=== PATIENT | female | born 1995 | race Native Hawaiian/Other Pacific Islander ===

== ENCOUNTER 2023-11-14 14:33 | Outpatient (REF) | payer OTHER, SELFPAY ==
[2023-11-14 16:11] LABS: MANUAL DIFF FLAG NO
[2023-11-14 16:21] LABS: Basophils Percent Auto 0.3 % (0-2); Eosinophils Absolute Auto 0.1 X10*3/uL (0.0-0.4); Eosinophils Percent Auto 1.6 % (0-4); Hematocrit 38.9 % (37.0-47.0); Hemoglobin 13.1 g/dl (12.0-16.0); Imm Gran Abs Auto 0.02 X10*3/uL (0.00-0.03); Imm Gran Pct Auto 0.3 % (0.0-0.4); Lymphocytes Absolute Auto 2.1 X10*3/uL (1.2-4.9); Lymphocytes Percent Auto 30.7 % (20-40); Mean Corpuscular HGB Conc 33.7 g/dl (31.0-35.0); Mean Corpuscular Hemoglobin 29.2 pg (27.0-33.0); Mean Corpuscular Volume 86.6 fL (80.0-98.0); Mean Platelet Volume 10.6 fL (9.4-12.3); Monocytes Absolute Auto 0.4 X10*3/uL (0.1-1.2); Monocytes Percent Auto 5.5 % (2-11); Neutrophils Absolute Auto 4.3 x10*3/uL (2.0-8.3); Neutrophils Percent Auto 61.6 % (45-73); Platelet Count 315 X10*3/uL (160-400); Red Blood Count 4.49 X10*6/uL (4.20-5.50); Red Cell Distribution Width 13.2 % (11.0-16.0); White Blood Count 6.9 X10*3/uL (4.8-10.8)
[2023-11-14 16:42] LABS: Alanine Aminotransferase 35 U/L (0-31); Albumin Level 4.3 g/dL (3.5-5.0); Alkaline Phosphatase 73 U/L (39-117); Anion Gap 11 (12-20); Aspartate Amino Transferase 24 U/L (5-31); Bilirubin Total 0.4 mg/dL (0.0-1.0); Blood Urea Nitrogen 12 mg/dL (9-16); Calcium 8.9 mg/dL (8.4-10.2); Carbon Dioxide 27 mmol/L (22-29); Chloride 103 mmol/L (96-108); Estimated Glomerular Filt Rate > 60; Glucose Random 88 mg/dL (60-115); Potassium 3.7 mmol/L (3.3-5.1); Sodium 137 mmol/L (135-145); Total Protein 7.1 g/dL (6.5-8.0)
[2023-11-14 16:59] LABS: TSH reflex Free T4 1.46 uIU/mL (0.32-4.0)
[2023-11-15 07:36] LABS: HIV AB/AG Nonreactive (Nonreactive); HIV Num 1 0.05 S/CO (0.00-0.99); ~HepC Num1 0.07 S/CO (0.00-0.79); ~Hepatitis C Antibody Nonreactive (Nonreactive)
[2023-11-16 14:48] LABS: RPR Rapid Plasma Reagin NON-REACTIVE (NON-REACTIVE)
== END 2023-11-14 14:34 | disposition home or self-care (01) ==
LOC: HO.HHCL 14:33
PROVIDERS: Visit Provider General Practice
DX: Z11.3 Encounter for screening for infections with a predominantly sexual mode of transmission (principal); R25.1 Tremor, unspecified
CPT/HCPCS: 36415; 80053; 84443; 85025; 86592; 86803; 87389

== ENCOUNTER 2024-04-09 16:18 | Outpatient (REF) | payer OTHER, SELFPAY ==
--- OUTSIDE RECORDS SUMMARY | 2024-04-09 16:40 | XMS_ITS | Encounter Summary ---
Author Organization [employer] Address [address] [place] [address] Care Team Providers Care Fashion Intern Name Role Phone Aimee Metcalf MD Primary Care Provider [phone] Encounter Details Date Type Department Care Team (Latest Contact Info) Description 04/09/2024 Travel Social History Tobacco Use Types Packs/Day Years Used Date Smoking Tobacco: Never Smokeless Tobacco: Never Alcohol Use Standard Drinks/Week Comments Never 0 (1 standard drink = 0.6 oz pur e alcohol) Depression Answer Date Recorded Patient Health Questionnaire-9 Score 0 11/14/2023 Patient Health Questionnaire-9 Score 0 11/14/2023 Last PHQ-9: Questionnaire Data Not on file 0 11/14/2023 Housing Stability Answer Date Recorded What is your housing situation today? I have emmanuel wong 10/25/[address] you li ve. Do you have problems with any of the following? None of the above 10/25/2023 Food Insecurity Answer Date Recorded Within the past 12 months, y ou worried that your food would run out before you got money to buy more: Never True 10/25/2023 Within the past 12 months,th e food you bought just didn't last and you didn't have enough money to get more: Never True Transportation Answer Date Recorded In the past 12 months, has l ack of transportation kept you from medical appts, meetings, work or from getting things needed for daily living? No 10/25/2023 Utilities Answer Date Recorded In the past 12 months, has t he electric, gas, oil or water company threatened to shut off services in your home? No 10/25/2023 Depression Answer Date Recorded Patient Health Questionnaire-2 Score 0 11/14/2023 Internet Access Answer Date Recorded Internet Access Q1 Yes 10/29/2023 Internet Access Q2 Not on file 10/29/2023 Comments No Sex and Gender Information Value Date Recorded Sex Assigned at Female 05/10/2023 10:48 AM EDT Legal Sex Female 10:46 AM EDT Gender Identity Female 05/10/2023 10:48 AM EDT Sexual Orientation Straight 11/14/2023 1: 34 PM EDT documented as of this encounter Plan of Treatment Not on file documented as of this encounter Visit Diagnoses Not on filedocumented in this encounter Additional Health Concerns Assessment Noted Time PHQ-9 Depression Total Score: 0 11/14/19 1:56 PM EDT documented as of this encounter Care Teams Fashion Intern Relationship Specialty Start Date End Date Aimee Metcalf MD [address] [place] [address] PCP - General Family Medicine 11/14/23 documented as of this encounter
--- OUTSIDE RECORDS SUMMARY | 2024-04-09 16:40 | XMS_ITS | Encounter Summary ---
Author Organization [employer] Address [address] [place] [address] Care Team Providers Care Principal Strategist Name Role Phone Aimee Metcalf MD Primary Care Provider [phone] Encounter Details Date Type Department Care Team (Late st Contact Info) Description 03/31/2024 Telephone [facility] MEDICINE [address] [place] [address] Carmen Vargas RN Social History Tobacco Use Types Packs/Day Years [...] is your housing situation today? I have emmanuelleonidas wong 10/25/[address] you [...] PM EDT documented as of this encounter Miscellaneous Notes * Telephone Encounter - Carmen Vargas RN - 03/31/2024 11:41 AM EST T/C to pt to R/S mychart self-scheduled pap to a more appropriate time. Pt agrees to new PAP visit time for 04/09/24 @ 9:15am with [facility] [facility] residents. documented in this encounter Plan of Treatment Not on file documented as of this encounter Visit Diagnoses Not on filedocumented in this encounter Additional Health Concerns Assessment Noted Time PHQ-9 Depression Total Score: 0 11/14/19 1:56 PM EDT documented as of this encounter Care Teams Principal Strategist Relationship Specialty Start Date End Date Aimee Metcalf MD [address] [place] [address] PCP - General Family Medicine 11/14/23 documented as of this encounter
--- OUTSIDE RECORDS SUMMARY | 2024-04-09 16:40 | XMS_ITS | Encounter Summary ---
Author Organization [employer] Address [address] [address] [facility] 7t [place] [address] Care Team Providers Care Ocean Clam Boat Captain Name Role Phone Aimee Metcalf MD Primary Care Provider [phone] Reason for Visit * Reason Comments Gynecologic Exam Encounter Details Date Type Department Care Team (Latest Contact Info) Description 04/09/2024 9:15 AM EST Procedure Visit [facility] MEDICINE [address] [place], [place] [phone] Maura Waller FNP [address] [place], [place] [phone] Routine cervical smear (Primary Dx); Intertrigo; IUD check up Social History Tobacco Use Types Packs/Day Years [...] PM EDT documented as of this encounter Last Filed Vital Signs Vital Sign Reading Time Taken Comments Blood Pressure 138/74 04/09/2024 9:25 AM EST Pulse 90 04/09/2024 9:25 AM EST Temperature 36.7 ??C (98.1 ??F) 04/09/2024 9:25 AM ES T Respiratory Rate 20 04/09/2024 9:25 AM EST Oxygen Saturation 98% 04/09/2024 9:25 AM EST Inhaled Oxygen Concentration - - Weight 97.9 kg (215 lb 12.8 oz) 04/09/2024 9:25 AM EST Height 157.5 cm (5' 2 ) 04/09/2024 9:25 AM EST Body Mass Index 39.47 04/09/2024 9:25 AM EST documented in this encounter Progress Notes * SHERMAN Escobar - 04/09/2024 9:15 AM EST Subjective Javier Alejo is a 28 y.o. female who presents for routine pap smear. Patient reported last pap was done outside [facility] in [facility] about 3 years ago and normal. Denies STI history, vaginal symptoms and urinary symptoms. LMP late last month, she does not keep a track of her period, they are light and irregular. IUD (Liletta) x 7 yrs. Plans to take it out next year to have another child. history: one child vaginal delivery Sexual active with same partner, denies pain/bleeding with sex. Denies safety concerns at home or with partner. No changes in breast exam. Denies family history of breast/ovarian/colon/uterine cancer. Review of Systems Constitutional: Negative for fever and unexpected weight change. HENT: Negative for sore throat. Respiratory: Negative for cough, chest tightness, shortness of breath and wheezing. Cardiovascular: Negative for chest pain, palpitations and leg swelling. Gastrointestinal: Negative for abdominal pain, nausea and vomiting. Genitourinary: Negative for dyspareunia, dysuria, frequency, genital sores, menstrual problem, pelvic pain, urgency, vaginal bleeding, vaginal discharge and vaginal pain. Neurological: Negative for dizziness. Psychiatric/Behavioral: Negative for sleep disturbance and suicidal ideas. Objective Patient Vitals for the past 24 hrs: BP Temp Temp src Pulse Resp SpO2 Height Weight 04/09/24 0925 138/74 98.1 ??F (36.7 ??C) Oral 90 20 98 % 5' 2 (1.575 m) 215 lb 12.8 oz (97.9 kg) Physical Exam Exam conducted with a wheel inspector present (Mary Alice Frances). Constitutional: Appearance: Normal appearance. Chest: Breasts: Right: Normal. No swelling, bleeding, inverted nipple, mass, nipple discharge, skin change or tenderness. Left: Normal. No swelling, bleeding, inverted nipple, mass, nipple discharge, skin change or tenderness. Comments: Bilateral Fibrocystic changes in the lower inner aspect Slight erythema under breasts bilaterally, possible intertrigo. Genitourinary: General: Normal vulva. Labia: Right: No rash, tenderness, lesion or injury. Left: No rash, tenderness, lesion or injury. Vagina: Normal. No signs of injury and foreign body. No vaginal discharge, erythema, tenderness, bleeding or lesions. Cervix: No cervical motion tenderness, discharge, friability, lesion, erythema, cervical bleeding or eversion. Uterus: Normal. Not enlarged and not tender. Adnexa: Right adnexa normal and left adnexa normal. Right: No mass, tenderness or fullness. Left: No mass, tenderness or fullness. Comments: IUD strings noted. Body of IUD not visible Lymphadenopathy: Upper Body: Right upper body: No supraclavicular or axillary adenopathy. Left upper body: No supraclavicular or axillary adenopathy. Neurological: Mental Status: She is alert. Psychiatric: Mood and Affect: Mood normal. Behavior: Behavior normal. Problem List Items Addressed This Visit Problem List Items Addressed This Visit Routine cervical smear - Primary Patient reports last pap smear about 3 yrs ago normal Sample sent to lab. Co test in 3 yrs if normal Relevant Orders Pap Smear Intertrigo Under bilateral breast moist with mild erythema. Patient complains sometimes itch. Nystatin powder prescribed BID PRN Relevant Medications nystatin (Mycostatin) 220080 UNIT/GM powder IUD check up Inserted immediately post x 7 yrs. Reviewed may continue for a total of 8 yrs from insertion. Planning to get at that time SURGERY AID Resident Attestation: Patient was seen and evaluated by Maura WHITAKER in collaboration with Mary Alice Frances CNM who has reviewed my assessment and plan. I, Mary Alice Frances CNM , have reviewed the resident's note and agree with the assessment & plan of care as documented above. documented in this encounter Plan of Treatment Scheduled Orders Name Type Priority Associated Diagnoses Orde r Schedule Pap Smear Pathology and Cytology Routine Routine cervical smear Ordered: 04/09/2024 documented as of this encounter Visit Diagnoses Diagnosis Routine cervical smear- Primary Screening for malignant neoplasm of the cervix Intertrigo Other specified erythematous condition IUD check up documented in this encounter Additional Health Concerns Assessment Noted Time PHQ-9 Depression Total Score: 0 11/14/19 24 1:56 PM EDT documented as of this encounter Care Teams Ocean Clam Boat Captain Relationship Specialty Start Date End Date Aimee Metcalf MD [address] [place] [address] PCP - General Family Medicine 11/14/23 documented as of this encounter
--- OUTSIDE RECORDS SUMMARY | 2024-04-09 16:40 | XMS_ITS | Encounter Summary ---
Author Organization [employer] Address [address] [place] [address] Care Team Providers Care Belt Buckle Maker Name Role Phone Aimee Metcalf MD Primary Care Provider [phone] Reason for Visit * Reason Onset Date Comments Chart Prep 04/07/2024 Encounter Details Date Type Department Care Team ([facility] st Contact Info) Description 04/07/2024 Telephone [facility] MEDICINE [address] [place] [address] Johana Veras MA Chart Prep Social History Tobacco Use Types Packs/Day Years [...] is your housing situation today? I have memanuelleonidas wong 10/25/[address] you [...] the past 12 months, has t he [employer], [employer], oil or water company threatened to shut [...] encounter Miscellaneous Notes * Telephone Encounter - Johana Veras MA - 04/07/2024 12:07 PM EST Chart Prep Labs: done Images: not applicable Vaccines due: Covid Due Referrals: Not Applicable Screenings: Not Applicable Overdue care gaps: None documented in this encounter Plan of Treatment Not on file documented as of this encounter Visit Diagnoses Not on filedocumented in this encounter Additional Health Concerns Assessment Noted Time PHQ-9 Depression Total Score: 0 11/14/19 24 1:56 PM EDT documented as of this encounter Care Teams Belt Buckle Maker Relationship Specialty Start Date End Date Aimee Metcalf MD [address] [place] [address] PCP - General Family Medicine 11/14/23 documented as of this encounter
--- OUTSIDE RECORDS SUMMARY | 2024-04-09 16:40 | XMS_ITS | Encounter Summary ---
Author Organization [employer] Address [address] [place] [address] Care Team Providers Care Wharf Worker Name Role Phone Aimee Metcalf MD Primary Care Provider [phone] Encounter Details Date Type Department Care Team (Latest Contact Info) Description 03/31/2024 Travel Social History Tobacco Use Types Packs/Day [...] documented as of this encounter Care Teams Wharf Worker Relationship Specialty Start Date End Date Aimee Metcalf MD [address] [place] [address] PCP - General Family Medicine 11/14/23 documented as of this encounter
--- OUTSIDE RECORDS SUMMARY | 2024-04-09 16:41 | XMS_ITS | Encounter Summary ---
Author Organization [employer] Address [address] [place] [address] Care Team Providers Care Hadoop Analyst Name Role Phone Aimee Metcalf MD Primary Care Provider Reason for Visit * Reason Onset Date Comments RECALL 03/11/2024 Encounter Details Date Type Department Care Team ([facility] st Contact Info) Description 03/11/2024 Telephone [facility] MEDICINE [address] [place], [place] [phone] Chio Leon MA RECALL Social History Tobacco Use Types Packs/Day Years [...] t he electric, gas, oil or water [employer] threatened to shut off services in your [...] encounter Miscellaneous Notes * Telephone Encounter - Chio Leon MA - 03/11/2024 3:02 PM EST T/C placed to pt to schedule pap . Lvm for pt to cb & schedule appt. Sent RCL documented in this encounter Plan of Treatment Not on file documented as of this encounter Visit Diagnoses Not on filedocumented in this encounter Additional Health Concerns Assessment Noted Time PHQ-9 Depression Total Score: 0 11/14/19 24 1:56 PM EDT documented as of this encounter Care Teams Hadoop Analyst Relationship Specialty Start Date End Date Aimee Metcalf MD [address] [place] [address] PCP - General Family Medicine 11/14/23 documented as of this encounter
--- OUTSIDE RECORDS SUMMARY | 2024-04-09 16:41 | XMS_ITS | Clinical Summary ---
Author Organization [facility] Address [address] [place] [address] Care Team Providers Care Cinder Worker Name Role Phone Syed Khalil PA-C Primary Care Provider Source Comments PLEASE NOTE, if this patient is a minor, it may be UNLAWFUL to discuss sensitive information that is contained in these records (such as FAMILY PLANNING, MENTAL HEALTH or SUBSTANCE ABUSE) with the minor patient's parent or other person without the patient's specific authorization.[facility] Allergies Active Allergy Reactions Criticality Noted Date Comments Penicillins Hives 08/23/2021 Medications No known medications Active Problems Problem Noted Date Diagnosed Date Obesity (BMI 30-39.9) 11/30/2021 Immunizations Name Administration Dates Next Due PFIZER COVID VACCINE, PURPLE CAP, 12+ 10/09/2020 ,09/18/2020 Family History Medical History Relation Name Comments Diabetes Father Hypertension Father Cancer Maternal Grandmother Diabetes Mother Hypertension Mother Relation Name Status Comments Father Alive Maternal Grandmother Alive Mother Alive Son Alive Social History Tobacco Use Types Packs/Day Years Used Date Smoking Tobacco: Never Smokeless Tobacco: Never Tobacco Cessation:Counseling Given: Yes Alcohol Use Standard Drinks/Week Comments Yes 0 (1 standard drink = 0.6 oz pur e alcohol) rarely Social Connections Answer Date Recorded Connectedness 0 08/24/2021 Financial Resource Strain Answer Date R ecorded Financial Resource Strain 0 2021 Stress Answer Date Recorded Stress 0 08/24/2021 Physical Activity Answer Date Recorded Physical Activity 0 08/23/2021 Food Insecurity Answer Date Recorded Food 0 08/24/2021 Transportation Needs Answer Date Record ed Transportation 0 08/24/2021 Housing Stability Answer Date Recorded Housing 0 08/24/2021 Safety and Environment Answer Date Andrew rded Safety 0 08/24/2021 Utilities Answer Date Recorded Utilities 0 08/24/2021 Employment Answer Date Recorded Employment 0 08/23/2021 Comments No Sex and Gender Information Value Date Recorded Sex Assigned at Female 08/24/2021 5:46 AM PDT Legal Sex Female 6:27 AM PST Gender Identity Female 08/24/2021 5:46 AM PDT Sexual Orientation Straight 08/24/2021 5: 46 AM PDT Last Filed Vital Signs Vital Sign Reading Time Taken Comments Blood Pressure 128/70 12/07/2021 2:51 PM EDT Pulse 75 12/07/2021 2:51 PM EDT Temperature 36.9 ??C (98.4 ??F) 12/07/2021 2:51 PM ED T Respiratory Rate 16 12/07/2021 2:51 PM EDT Oxygen Saturation 98% 12/07/2021 2:51 PM EDT Inhaled Oxygen Concentration - - Weight 88.9 kg (196 lb) 12/07/2021 2:51 PM EDT Height 157.5 cm (5' 2 ) 12/07/2021 2:51 PM EDT Body Mass Index 35.85 12/07/2021 2:51 PM EDT Plan of Treatment Health Maintenance Due Date Last Done Comments HPV Screening 1996 Tobacco Screening 1996 Imm-Hepatitis B (1 of 3 - 19 + 3-dose series) 11/27/2015 Relationship Safety Screening/Counseling 08/23/2022 08/23/2021 Annual Preventive Care Visit 12/07/2022 12/07/2021 [id number] ( season) 10/28/202310/09/ 021, 09/18/2020 Imm-Influenza (#1) 2023 Alcohol and Drug Screen 02/27/2024 08/23/2021 Depression Annual Screen 02/27/2024 08/24/2021 Pap Smear 04/01/2024 04/01/2021, 04/01/2021 Hypertension Screening (#1) 12/06/2024 Cervical Cancer Screening 04/01/2026 Pap + HPV 04/01/2026 04/01/2021 Imm-DTaP/Tdap/Td (2 - Td or Tdap) 06/30/2026 017 HIV Screening Completed 12/07/2021 Hepatitis C Screening Completed 12/07/2021 Cervical Ablation/Cold-Knife Conization Discontinued Cervical Cryotherapy Discontinued Colposcopy Discontinued Endometrial Biopsy Discontinued Excision/Leep Discontinued HPV Genotyping Discontinued Vaginal Pap Discontinued Vulvoscopy Discontinued Procedures Procedure Name Priority Date/Time Associated Diagnosis Comments HIV 1/2 AG & AB W/RFLX (4TH GEN) Routine 12/07/2021 3:05 PM EDT Screening for viral disease HEPATITIS C AB W/RFLX HCV RNA, QT, RT PCR Routine 12/07/2021 3:05 PM EDT Screening for viral disease PAP W/ HPV 04/01/2021 3:00 AM EST from Last 3 Months or Most Recently Relevant to Health Maintenance Results * HEPATITIS C AB W/RFLX HCV RNA, QT, RT PCR (12/07/2021 3:05 PM EDT) HEPATITIS C ANTIBODY NON-REACT KARLA NON-REACT KARLA Net 263 SIGNAL TO CUT-OFF 0.03 <1.00 Net 263 Comment: HCV antibody was non-reactive. There is no laboratory evidence of HCV infection. In most cases, no further action is required. However, if recent HCV exposure is suspected, a test for HCV RNA (test code 17106) is suggested. For additional information please refer to http://education.Zoodig/faq/HLY89m8 (This link is being provided for informational/ educational purposes only.) Blood Blood / Unknown 12/07/2021 3 :05 PM EDT 12/07/2021 3:05 PM EDT Narrative [employer] - 12/08/2021 3:07 AM EDT FASTING:NO us Syed Khalil PA-C LAB - BLOOD DRAW Final Resul t [employer] [address] [address], [address] [address] * HIV 1/2 AG & AB W/RFLX (4TH GEN) (12/07/2021 3:05 PM EDT) HIV AG/AB, 4TH GEN NON-REAC TIVE NON-REAC TIVE Net 263 Comment: HIV-1 antigen and HIV-1/HIV-2 antibodies were not detected. There is no laboratory evidence of HIV infection. PLEASE NOTE: This information has been disclosed to you from records whose confidentiality may be protected by state law. ??If your state requires such protection, then the state law prohibits you from making any further disclosure of the information without the specific written consent of the person to whom it pertains, or as otherwise permitted by law. A general authorization for the release of medical or other information is NOT sufficient for this purpose. ?? For additional information please refer to http://education.Zoodig/faq/HTS676 (This link is being provided for informational/ educational purposes only.) The performance of this assay has not been clinically validated in patients less than 2 years old. Blood Blood / Unknown 12/07/2021 3 :05 PM EDT 12/07/2021 3:05 PM EDT Narrative [employer] - 12/08/2021 3:07 AM EDT FASTING:NO us Syed Khalil PA-C LAB - BLOOD DRAW Final Resul t [employer] [address] [place] [id number], [employer] [address] [address] * PAP W/ HPV (04/01/2021 3:00 AM EST) 04/01/2021 3:00 AM EST us Syed Khalil PA-C LAB - NO BLOOD DRAW Final Re sult from Last 3 Months or Most Recently Relevant to Health Maintenance Insurance [employer] Member Subscriber Plan / Payer (Ef fective 2023-Present) Name:Javier Alejo Relation to Subscriber:Self Name:Javier Alejo Payer ID:[id number] Type:Indemnity Address: [address] [address] Care Teams Cinder Worker Relationship Specialty Start Date End Date Syed Khalil PA-C [address] [place] [address] PCP - General 05/31/21
--- OUTSIDE RECORDS SUMMARY | 2024-04-09 16:41 | XMS_ITS | Clinical Summary ---
Author Organization [employer] Address [address] [place] [address] 7t [place] [address] Care Team Providers Care Timber Appraiser Name Role Phone Aimee Metcalf MD Primary Care Provider [phone] Allergies Active Allergy Reactions Criticality Noted Date Comments Penicillins Hives 08/23/2021 Medications propranolol (Inderal) 10 MG tabletIndication s:Tremor Take 1 tablet (10 mg) by mouth if needed each day (tremor). 90 tablet 3 11/16/2023 Active nystatin (Mycostatin) 512498 UNIT/GM powderIndication s:Intertrigo Apply twice daily under the breast PRN 30 g 1 04/09/2024 Active Active Problems Problem Noted Date Diagnosed Date Intertrigo 04/09/2024 Normal female breast exam 04/09/2024 IUD check up 04/09/2024 Routine cervical smear 04/08/2024 Class 1 obesity 11/09/2023 Carpal tunnel syndrome during 11/09/19 24 Encounters Date Type Department Care Team Description 04/09/2024 9:15 AM EST Procedure Visit [facility] [address] [place] [phone] Maura Waller FNP Routine cervical smear (Primary Dx); Intertrigo; IUD check up 04/09/2024 Travel 04/07/2024 Telephone [facility] [address] [place] [address] Johana Veras MA Chart Prep 03/31/2024 Telephone [facility] [address] [place] [address] Carmen Vargas RN 03/31/2024 Travel 03/11/[address] [place] [address] Chio Leon AR RECALL from Last 3 Months Immunizations Name Administration Dates Next Due Influenza, seasonal, injectable, preservative fr ee 11/14/2023 Pfizer Covid-19 Vaccine 12+ 10/09/2020, Tdap 06/30/2016 Family History Medical History Relation Name Comments Diabetes type II Father Hyperlipidemia Mother Hypertension Mother Relation Name Status Comments Father Mother Social History Tobacco Use Types Packs/Day Years Used Date Smoking Tobacco: Never Smokeless Tobacco: Never Tobacco Cessation:Counseling Given: Not Answered Alcohol Use Standard Drinks/Week Comments Never 0 [...] Orientation Straight 11/14/2023 1: 34 PM EDT Last Filed Vital Signs Vital Sign Reading [...] Mass Index 39.47 04/09/2024 9:25 AM EST Plan of Treatment Health Maintenance Due Date Last Done Comments Pap Smear 2017 COVID-19 Vaccine ( season) 2023 10/09/2020, 09/18/2020 Alcohol/Substance Use Screening 11/13/2024 11/14/2023 Depression Screening 11/13/2024 11/14/2023, 11/14/19 SDOH Screening 11/13/2024 11/14/2023 Family Planning (PISQ) 04/09/2025 04/09/2024 Tobacco Screening 04/09/2025 04/09/2024 DTaP/Tdap/Td Vaccines (7 - Td or Tdap) 06/30/2026 06/30/2016, 07/13/2008, 05/14/1998, Additional history exists Zoster Vaccines (1 of 2) 2046 RSV Patients and Patients Aged 60 years or older (1 - 1-dose 75+ series) 11/27/2071 Hepatitis B Vaccines Completed 06/16/1997, 04/08/1997, 02/02/1997 HIB Vaccines Completed 05/14/1998, 05/28, 04/08/1997, Additional history exists IPV Vaccines Completed 11/28/2000, 05/28, 04/08/1997, Additional history exists HPV Vaccines Completed 04/21/2009, 11/26, 07/13/2008 Meningococcal Vaccine Completed 03/28/2013, 009 HIV Screening Completed 11/14/2023, 12/07/2021 Hepatitis C Screening Completed 11/14/2023 Influenza Vaccine Completed 11/14/2023, 03/28/2013 Hepatitis A Vaccines Aged Out No long er eligible based on patient's age to complete this topic Pneumococcal Vaccine: Pediatrics (0 to 5 Years) and At-Risk Patients (6 to 49) Years) Aged Out No longer eligible based on patient's age to complete this topic RSV under 20 months Aged Out No longe r eligible based on patient's age to complete this topic Rotavirus Vaccines Aged Out No longer eligible based on patient's age to complete this topic Procedures Procedure Name Priority Date/Time Associated Diagnosis Comments HEPATITIS C AB W/REFL TO HCV RNA, QN, PCR Routine 11/14/2023 2:37 PM EDT Routine screening for STI (sexually transmitted infection) HIV 1/2 ANTIGEN/ANTIBODY, FOURTH GENERATION W/RFL Routine 11/14/2023 2:37 PM EDT Routine screening for STI (sexually transmitted infection) from Last 3 Months or Most Recently Relevant to Health Maintenance Results * Hepatitis C Antibody with Reflex to HCV, RNA, Quantitative, Real-Time PCR (11/14/2023 2:37 PM EDT) Hepatitis C Antibody Nonreactive Nonreactive [facility] Comment:Antibodies to HCV no t detected; does not exclude early acuteHCV infection. Blood Venous blood specimen / Unknown 11/14/2023 2:37 PM EDT 11/14/2023 4:08 PM EDT us Aimee Metcalf MD LAB BLOOD ORDERABLES Final Res ult [facility] [address] [place] [phone] * HIV-1/2 Antigen and Antibodies, Fourth Generation, with Reflexes (11/14/2023 2:37 PM EDT) HIV AB/AG Nonreactive Nonreactive [facility] Comment:HIV-1 p24 Ag and/or HIV-1/HIV-2 Ab not detected.A test result that is nonreactive does not exclude thepossibility of exposure to or infection with HIV-1 and/orHIV-2. Nonreactive results in this assay for individualswith prior exposure to HIV-1 and/or HIV-2 may be due toantigen and antibody levels that are below the limit ofdetection of this assay.The [employer] HIV Ag/Ab Combo assay result andsupplemental assay results should be interpreted inconjunction with the patient's clinical presentation,history and other laboratory results. If the results areinconsistent with clinical evidence, additional testing issuggested to confirm the result. Blood Venous blood specimen / Unknown 11/14/2023 2:37 PM EDT 11/14/2023 4:08 PM EDT us Aimee Metcalf MD LAB BLOOD ORDERABLES Final Res ult [facility] [address] [place] [phone] from Last 3 Months or Most Recently Relevant to Health Maintenance Insurance [facility] Care Teams Timber Appraiser Relationship Specialty Start Date End Date Aimee Metcalf MD [address] [place] [phone] PCP - General Family Medicine 11/14/23
== END 2024-04-09 16:19 | disposition home or self-care (01) ==
LOC: HO.HHCLNP 16:18
PROVIDERS: Visit Provider Nurse Practitioner Family
DX: Z12.4 Encounter for screening for malignant neoplasm of cervix (principal)
CPT/HCPCS: 88175

== ENCOUNTER 2024-12-26 11:10 | Outpatient (REF) | payer OTHER, SELFPAY ==
--- OUTSIDE RECORDS SUMMARY | 2024-12-26 10:30 | XMS_ITS | Encounter Summary ---
Author Organization [employer] Address [address] [facility] 7t [place] [address] Care Team Providers Care Psychologist Clinical Name Role Phone Aimee Metcalf MD Primary Care Provider [phone] Reason for Visit * Reason Comments Annual Exam Encounter Details Date Type Department Care Team ([facility] Contact Info) Description 12/26/2024 10:30 AM EDT Office Visit [facility] [address] [place], [place] [phone] Aimee Metcalf MD [address] [place], [place] [phone] Normal female breast exam (Primary Dx); Class 1 obesity Social History Tobacco Use Types Packs/Day Years Used Date Smoking Tobacco: Never Smokeless Tobacco: Never Alcohol Use Standard Drinks/Week Comments Never 0 (1 standard drink = 0.6 oz pur e alcohol) Depression Answer Date Recorded Patient Health Questionnaire-9 Score 3 12/26/2024 Patient Health Questionnaire-9 Score 3 12/26/2024 Last PHQ-9: Questionnaire Data Not on file 1 Housing Stability Answer Date Recorded What is your housing situation today? I have emmanuel wong 12/26/[address] you li ve. Do you have problems with any of the following? None of the above 12/26/2024 Food Insecurity Answer Date Recorded Within the past 12 months, y ou worried that your food would run out before you got money to buy more: Never True 12/26/2024 Within the past 12 months,th e food [...] shut off services in your home? No 12/26/2024 Depression Answer Date Recorded Patient Health Questionnaire-2 Score 0 12/26/2024 Internet Access Answer Date Recorded Internet Access Q1 No 12/26/2024 Internet Access Q2 Not on file 12/26/2024 Comments No Sex and Gender Information Value Date Recorded Sex Assigned at Female 05/10/2023 10:48 AM EDT Legal Sex Female 10:46 AM EDT Gender Identity Female 05/10/2023 10:48 AM EDT Sexual Orientation Straight 11/14/2023 1: 34 PM EDT documented as of this encounter Last Filed Vital Signs Vital Sign Reading Time Taken Comments Blood Pressure 130/80 12/26/2024 10:40 AM EDT Pulse 74 12/26/2024 10:40 AM EDT Temperature 36.8 C (98.3 F) 12/26/2024 10:40 AM EDT Respiratory Rate 20 12/26/2024 10:40 AM EDT Oxygen Saturation - - Inhaled Oxygen Concentration - - Weight 102 kg (224 lb 9.6 oz) 12/26/2024 10:40 A M EDT Height 162.6 cm (5' 4 ) 12/26/2024 10:40 AM EDT Body Mass Index 38.55 12/26/2024 10:40 AM EDT documented in this encounter Functional Status * Over the past 2 weeks, how often have you been bothered by any of the following problems? Question Answer Date of Assessment Author Patient Health Questionnaire -2 Score 0 12/26/2024 10:42 AM EDT Kenyon Lyons MA * Little interest or pleasure in doing things Answer Date of Assessment Author Not at all 12/26/2024 10:42 AM EDT Kenyon Lyons MA * Feeling down, depressed, or hopeless Answer Date of Assessment Author Not at all 12/26/2024 10:42 AM EDT Kenyon Lyons MA * Trouble falling or staying asleep, or sleeping too much Answer Date of Assessment Author Several days 12/26/2024 10:42 AM Kenyon William MA * Feeling tired or having little energy Answer Date of Assessment Author Several days 12/26/2024 10:42 AM Kenyon William MA * Poor appetite or overeating Answer Date of Assessment Author Several days 12/26/2024 10:42 AM Kenyon William MA * Feeling bad about yourself - or that you are a failure or have let yourself or your family down Answer Date of Assessment Author Not at all 12/26/2024 10:42 AM Kenyon William MA * Trouble concentrating on things, such as reading the newspaper or watching television Answer Date of Assessment Author Not at all 12/26/2024 10:42 AM Kenyon William MA * Moving or speaking so slowly that other people could have noticed? Or the opposite - being so fidgety or restless that you have been moving around a lot more than usual. Answer Date of Assessment Author Not at all 12/26/2024 10:42 AM Kenyon William MA * Thoughts that you would be better off or hurting yourself in some way Answer Date of Assessment Author Not at all 12/26/2024 10:42 AM Kenyon William MA * Patient Health Questionnaire-9 Score Answer Date of Assessment Author 3 12/26/2024 10:42 AM Kenyon William MA * How difficult have these problems made it for you to do your work, take care of things at home, or get along with other people? Answer Date of Assessment Author Not difficult at all 12/26/2024 10:42 AM Kenyon Pelayo MA * Over the last 2 weeks, how often have you been bothered by any of the following problems? Question Answer Date of Assessment Author Feeling nervous, anxious, or on edge 1 12/26/2024 10:41 AM Kenyon William MA Not being able to stop or co ntrol worrying 1 12/26/2024 10:41 AM Kenyon William MA Worrying too much about diff erent things 1 12/26/2024 10:41 AM EDT Kenyon Lyons MA Trouble relaxing 1 12/26/2024 10:41 AM EDT Kenyon Lyons MA Being so restless that it is hard to sit still 0 12/26/2024 10:41 AM EDT Kenyon Lyons MA Becoming easily annoyed or irritable 2 12/26/2024 10:41 AM EDT Kenyon Lyons MA Feeling afraid as if somethi ng awful might happen 0 12/26/2024 10:41 AM EDT Kenyon Lyons MA KARMEN-7 Total Score 6 12/26/2024 10:41 AM EDT Kenyon Lyons MA documented as of this encounter Plan of Treatment Scheduled Orders Name Type Priority Associated Diagnoses Orde r Schedule Lipid Panel, Standard Lab Routine Class 1 obesity Expected: 12/26/2024 (Approximate), Expires: 12/26/2025 documented as of this encounter Visit Diagnoses Diagnosis Normal female breast exam- Primary Class 1 obesity documented in this encounter Additional Health Concerns Assessment Noted Time PHQ-9 Depression Total Score: 3 12/27/19 25 10:42 AM EDT documented as of this encounter Care Teams Psychologist Clinical Relationship Specialty Start Date End Date Aimee Metcalf MD [address] [place] [address] PCP - General Family Medicine 11/14/23 documented as of this encounter
--- OUTSIDE RECORDS SUMMARY | 2024-12-26 12:45 | XMS_ITS | Encounter Summary ---
Author Organization [employer] Address [address] [facility] 7t [place] [address] Care Team Providers Care Community Outreach Coordinator Name Role Phone Aimee Metcalf MD Primary Care Provider [phone] Reason for Visit * Reason Onset Date Comments chart prep 12/25/2024 Encounter Details Date Type Department Care Team ([facility] st Contact Info) Description 12/25/2024 Telephone [facility] [address] [place], [place] [phone] Aimee Metcalf MD [address] [place], [place] [phone] chart prep Social History Tobacco Use Types Packs/Day Years [...] encounter Miscellaneous Notes * Telephone Encounter - Kenyon Lyons MA - 12/25/2024 10:09 AM EDT Chart Prep Labs: not applicable Images: not applicable Referrals: not applicable Vaccines due: Covid and Flu Screenings: not applicable Overdue care gaps: SBIRT, SDOH, PHQ-9, and KARMEN-7 documented in this encounter Plan of Treatment Not on file documented as of this encounter Visit Diagnoses Not on filedocumented in this encounter Additional Health Concerns Assessment Noted Time PHQ-9 Depression Total Score: 0 11/14/19 24 1:56 PM EDT documented as of this encounter Care Teams Community Outreach Coordinator Relationship Specialty Start Date End Date Aimee Metcalf MD [address] [place] [address] PCP - General Family Medicine 11/14/23 documented as of this encounter
--- OUTSIDE RECORDS SUMMARY | 2024-12-26 12:45 | XMS_ITS | Clinical Summary ---
Author Organization [employer] Address [address] [facility] 7t [place] [address] Care Team Providers Care Research And Development Manager Name Role Phone Aimee Metcalf MD Primary Care Provider [phone] Allergies Active Allergy Reactions Criticality Noted Date Comments Penicillins Hives 08/23/2021 Medications propranolol (Inderal) 10 MG tabletIndication s:Tremor Take 1 tablet (10 mg) by mouth if needed each day (tremor). 90 tablet 3 11/16/2023 Active 28-0.8 MG tabletIndication s:Encounter for IUD removal Take 1 tablet by mouth Once per day. 90 tablet 3 07/01/2024 Active Active Problems Problem Noted Date Diagnosed Date Encounter for IUD removal 07/01/2024 Assessment & Plan (07/01/2024 9:44 AM EDT): Discussed preconception counseling No EtoH, no smoking tobacco or marijuana vitamin daily, eat varied diet, rich in vegetables, lean protein, and whole grains With positive test, to inform us and decide where she would like to be seen for care Intertrigo 04/09/2024 Normal female breast exam 04/09/2024 Routine cervical smear 04/08/2024 Class 1 obesity 11/09/2023 Carpal tunnel syndrome during 11/09/19 24 Resolved Problems Problem Noted Date Diagnosed Date Resolved Date IUD check up 04/09/2024 07/01/2024 Encounters Date Type Department Care Team Description 12/26/2024 10:30 AM EDT Office Visit [facility] [address] [place] [address] Aimee Metcalf MD Normal female breast exam (Primary Dx); Class 1 obesity 12/26/2024 Travel 12/25/2024 Telephone [facility] [address] [place] [phone] Aimee Metcalf MD chart prep 12/19/2024 Travel 12/18/2024 Patient Outreach [facility] [address] [place] [address] Aimee Metcalf MD Pre-visit Planning (Pre-visit planning - LVM ) from Last 3 Months Immunizations Immunization Administration Dates Next Due DTP 06/16/1997,04/08/1997,02/02/1997 DTaP 05/14/1998 HPV, Quadrivalent 04/21/2009,12/08/2008,07/14/19 09 Hep B, Adolescent or Pediatric 06/16/1997,1997,02/02/1997 HiB, unspecified 05/14/1998, 8,04/08/1997,02/02 IPV 11/28/2000 Influenza, Unspecified 03/28/2013 Influenza, seasonal, injecta ble, preservative free 11/14/2023 MMR 11/28/2000,05/14/1998 Meningococcal MCV4P [id number]-135 03/28/2013,07/14/19 09 OPV, Trivalent 06/16/1997,04/08/1997,02/02/1997 Pfizer Covid-19 Vaccine 12+ 10/09/2020, Tdap 06/30/2016,07/13/2008 Varicella 08/10/2008,05/14/1998 Family History Medical History Relation Name Comments [...] 20 12/26/2024 10:40 AM EDT Oxygen Saturation 99% 07/01/2024 9:12 AM EDT Inhaled Oxygen Concentration - - Weight 102 kg (224 lb 9.6 oz) 12/26/2024 10:40 A M EDT Height 162.6 cm (5' 4 ) 12/26/2024 10:40 AM EDT Body Mass Index 38.55 12/26/2024 10:40 AM EDT Plan of Treatment Health Maintenance Due Date Last Done Comments Lipid Panel 1996 COVID-19 Vaccine ( season) 2024 10/09/2020, 09/18/2020 Influenza Vaccine (#1) 2024 11/14/2023, 2013 SDOH Screening 11/13/2024 11/14/2023 Disability Screening 04/09/2025 04/09/2024 Family Planning (PISQ) 04/09/2025 04/09/2024 Alcohol/Substance Use Screening 12/26/2025 12/26/2024 Depression Screening 12/26/2025 12/26/2024, 12/27/19 25 Tobacco Screening 12/26/2025 12/26/2024 DTaP/Tdap/Td Vaccines (7 - Td or Tdap) 06/30/2026 06/30/2016, 07/13/2008, 05/14/1998, Additional history exists Pap Smear 04/09/2027 04/09/2024 Zoster Vaccines (1 of 2) 2046 RSV [...] 11/14/2023, 12/07/2021 Hepatitis C Screening Completed 11/14/2023 Hepatitis A Vaccines Aged Out No long er eligible based on patient's age to complete this topic Meningococcal B Vaccine Aged Out No l onger eligible based on patient's age to complete this topic Pneumococcal Vaccine: Pediatrics (0 to 5 Years) and At-Risk Patients (6 to 49) Years Aged Out No longer eligible based on patient's age to complete this topic RSV under 20 months Aged Out No longe r eligible based on patient's age to complete this topic Rotavirus Vaccines Aged Out No longer eligible based on patient's age to complete this topic Procedures Procedure Name Priority Date/Time Associated Diagnosis Comments PAP SMEAR Routine 04/09/2024 10:00 AM EST Routine cervical smear HEPATITIS C AB W/REFL TO HCV RNA, QN, PCR Routine 11/14/2023 2:37 PM EDT Routine screening for STI (sexually transmitted infection) HIV 1/2 ANTIGEN/ANTIBODY, FOURTH GENERATION W/RFL Routine 11/14/2023 2:37 PM EDT Routine screening for STI (sexually transmitted infection) from Last 3 Months or Most Recently Relevant to Health Maintenance Results * Pap Smear (04/09/2024 10:00 AM EST) Swab Cervix uteri structure / Unknown 04/09/2024 10:00 AM EST 04/10/2024 6:10 AM EST [facility] - 04/17/2024 9:41 PM EST ----- ------- Name: Javier Alejo Age/Sex: 28/F : 1995 Unit#: [id number] Attend Dr: Maura Waller Re04/09/24 Status: SIRENA REF Location: HO.HHCLNP Disch: ----- ------- SPEC : [id number] RECD: 04/10/24-609 STATUS: LAKISHA PIKE NUM: [id number] JC: 04/09/24-[address]: Maura Waller ENTERED: 04/10/2442 SP TYPE: Pap Smr OTHR : ORDERED: Pap Smear, PAP path review Interpretation ABNORMAL PAP TEST. Satisfactory for evaluation, with mildly dysplastic squamous cells / HPV cytopathic change (PEPPER 1; low grade squamous intraepithelial lesion). No endocervical cells seen. Moderate inflammation. HPV High Risk: Positive HPV Genotyping 16: Negative HPV Genotyping 18: Negative Clinical Information LMP: 02/28/24 Previous PAP test: Unknown Other surgery: Other history: IUD Material Received ThinPrep-Cervical ----- ------- Signed (signature on file) Destiney Elizalde MD 04/17/24 2141 ----- ------- END OF REPORT us Maura Waller [facility] CYTOLOGY ORDERABLES Final Result [facility] [address] [place] [phone] * Hepatitis C Antibody with Reflex to HCV, RNA, Quantitative, Real-Time PCR (11/14/2023 2:37 PM EDT) Hepatitis C Antibody Nonreactive Nonreactive [facility] Comment:Antibodies to HCV no t detected; does not exclude early acuteHCV infection. Blood Venous blood specimen / Unknown 11/14/2023 2:37 PM EDT 11/14/2023 4:08 PM EDT Aimee Metcalf MD LAB BLOOD ORDERABLES Final Res ult Performing Organization Address [facility]/ZIP Co de Phone Number [facility] [address] [place] [phone] * HIV-1/2 Antigen and Antibodies, Fourth Generation, with Reflexes (11/14/2023 2:37 PM EDT) [facility] HIV AB/AG Nonreactive Nonreactive [facility] Comment:HIV-1 p24 Ag and/or HIV-1/HIV-2 Ab not detected.A test result that is nonreactive does not exclude thepossibility of exposure to or infection with HIV-1 and/orHIV-2. Nonreactive results in this assay for individualswith prior exposure to HIV-1 and/or HIV-2 may be due toantigen and antibody levels that are below the limit ofdetection of this assay.The [employer] HIV Ag/Ab Combo assay result andsupplemental assay results should be interpreted inconjunction with the patient's clinical presentation,history and other laboratory results. If the results areinconsistent with clinical evidence, additional testing issuggested to confirm the result. Blood Venous blood specimen / Unknown 11/14/2023 2:37 PM EDT 11/14/2023 4:08 PM EDT Aimee Metcalf MD LAB BLOOD ORDERABLES Final Res ult Performing Organization Address City/[facility]/ZIP Co de Phone Number [facility] [address] [place] [phone] from Last 3 Months or Most Recently Relevant to Health Maintenance Insurance [facility] Care Teams Research And Development Manager Relationship Specialty Start Date End Date Aimee Metcalf MD [address] [place] [phone] PCP - General Family Medicine 11/14/23
--- OUTSIDE RECORDS SUMMARY | 2024-12-26 12:45 | XMS_ITS | Encounter Summary ---
Author Organization [employer] Address [address] [facility] [address] [address] 7[address] [place] [address] Care Team Providers Care Rfid Developer Name Role Phone Aimee Metcalf MD Primary Care Provider [phone] Encounter Details Date Type Department Care Team (Latest Contact Info) Description 12/26/2024 Travel Social History Tobacco Use Types Packs/Day [...] PM EDT documented as of this encounter Functional Status * Over the past 2 weeks, how often have you been bothered by any of the following problems? Question Answer Date of Assessment Author Patient Health Questionnaire -2 Score 0 12/26/2024 10:42 AM EDT Kenyon Lyons MA * Little interest or pleasure in doing things Answer Date of Assessment Author Not at all 12/26/2024 10:42 AM MUNIRT Kenyon Lyons MA * Feeling down, depressed, or hopeless Answer Date of Assessment Author Not at all 12/26/2024 10:42 AM Kenyon William MA * Trouble falling or staying asleep, [...] Author Not at all 12/26/2024 10:42 AM EDKenyon Glover MA * Thoughts that you would be [...] Not difficult at all 12/26/2024 10:42 AM EDT Kenyon Penny MA * Over the last 2 weeks, [...] diff erent things 1 12/26/2024 10:41 AM Kenyon William MA Trouble relaxing 1 12/26/2024 10:41 AM Kenyon William MA Being so restless that it is hard to sit still 0 12/26/2024 10:41 AM Kenyon William MA Becoming easily annoyed or irritable 2 12/26/2024 10:41 AM Kenyon William MA Feeling afraid as if somethi ng awful might happen 0 12/26/2024 10:41 AM Kenyon William MA KARMEN-7 Total Score 6 12/26/2024 10:41 AM Kenyon William MA documented as of this encounter Plan of Treatment Not on file documented as of this encounter Visit Diagnoses Not on filedocumented in this encounter Additional Health Concerns Assessment Noted Time PHQ-9 Depression Total Score: 3 12/27/19 25 10:42 AM EDT documented as of this encounter Care Teams Rfid Developer Relationship Specialty Start Date End Date Aimee Metcalf MD [address] [place] [phone] PCP - General Family Medicine 11/14/23 documented as of this encounter
--- OUTSIDE RECORDS SUMMARY | 2024-12-26 12:45 | XMS_ITS | Clinical Summary ---
Author Organization [facility] Address [address] [place] [address] Care Team Providers Care Insurance Account Representative Name Role Phone Syed Khalil PA-C Primary [...] Diagnosed Date Obesity (BMI 30-39.9) 11/30/2021 Immunizations Immunization Administration Dates Next Due PFIZER COVID VACCINE, [...] 75 12/07/2021 2:51 PM EDT Temperature 36.9 C (98.4 F) 12/07/2021 2:51 PM EDT Respiratory Rate 16 12/07/2021 2:51 PM EDT Oxygen Saturation 98% 12/07/2021 2:51 PM EDT Inhaled Oxygen Concentration - - Weight 88.9 kg (196 lb) 12/07/2021 2:51 PM EDT Height 157.5 cm (5' 2 ) 12/07/2021 2:51 PM EDT Body Mass Index 35.85 12/07/2021 2:51 PM EDT Plan of Treatment Health Maintenance Due Date Last Done Comments Anxiety Screening 1995 HPV Screening (self-collect) 1996 HPV Screening 1996 Tobacco Screening 1996 Imm-Hepatitis B (1 of 3 - 19 + 3-dose series) 11/27/2015 Relationship Safety Screening/Counseling 08/23/2022 08/23/2021 Annual Wellness (Adult): Ind icated (All Coverage) 12/07/2022 12/07/2021 Imm-HPV (1 - 3-dose SCDM series) 11/27/2023 Alcohol and Drug Screen 02/27/2024 08/23/2021 Depression Annual Screen 02/27/2024 08/24/2021 Pap Smear 04/01/2024 04/01/2021, 04/01/2021 [id number] ( season) 10/27/202410/09/ 021, 09/18/2020 Imm-Influenza (#1) 2024 Hypertension Screening (#1) 12/06/2024 Cervical Cancer Screening 04/01/2026 Pap + HPV 04/01/2026 04/01/2021 Imm-DTaP/Tdap/Td (2 - Td or Tdap) 06/30/2026 017 HIV Screening Completed 12/07/2021 Hepatitis C Screening Completed 12/07/2021 Cervical Ablation/Cold-Knife Conization Discontinued Cervical Cryotherapy Discontinued Colposcopy Discontinued Excision/Leep Discontinued HPV Genotyping Discontinued Vaginal [...] Recently Relevant to Health Maintenance Results * Hep C Ab w/Rflx (12/07/2021 3:05 PM EDT) HEPATITIS C ANTIBODY NON-REACT KARLA NON-REACT KARLA [employer] SIGNAL TO CUT-OFF 0.03 <1.00 [employer] Comment: HCV antibody was non-reactive. There is no laboratory evidence of HCV infection. In most cases, no further action is required. However, if recent HCV exposure is suspected, a test for HCV RNA (test code 45390) is suggested. For additional information please refer to http://education.[employer] [facility]/faq/XSA13v5 (This link is being provided for informational/ educational purposes only.) Blood Blood / Unknown 12/07/2021 3 :05 PM EDT 12/07/2021 3:05 PM EDT Narrative frents - 12/08/2021 3:07 AM EDT FASTING:NO us Syed Kahlil PA-C LAB - BLOOD DRAW Final Resul t frents [address] [address], [employer] [address] [address] * HIV Screen (12/07/2021 3:05 PM EDT) HIV AG/AB, 4TH GEN NON-REAC TIVE NON-REAC TIVE [employer] [facility] Comment: HIV-1 antigen and HIV-1/HIV-2 antibodies were not detected. There is no laboratory evidence of HIV infection. PLEASE NOTE: This information has been disclosed to you from records whose confidentiality may be protected by state law. If your state requires such protection, then the state law prohibits you from making any further disclosure of the information without the specific written consent of the person to whom it pertains, or as otherwise permitted by law. A general authorization for the release of medical or other information is NOT sufficient for this purpose. For additional information please refer to http://education.[facility]/faq/TAW074 (This link is being provided for informational/ educational purposes only.) The performance of this assay has not been clinically validated in patients less than 2 years old. Blood Blood / Unknown 12/07/2021 3 :05 PM EDT 12/07/2021 3:05 PM EDT Narrative frents - 12/08/2021 3:07 AM EDT FASTING:NO us Syed Khalil PA-C LAB - BLOOD DRAW Final Resul t [employer] [address] [address], [employer] [facility] [address],[facility] [place] [address] * PAP W/ HPV (04/01/2021 3:00 AM EST) 04/01/2021 3:00 AM EST us Syed Khalil PA-C LAB - PATHOLOGY AND CYTOLOGY AMBULATORY Final Result from Last 3 Months or Most Recently Relevant to Health Maintenance Insurance [employer] Care Teams Insurance Account Representative Relationship Specialty Start Date End Date Syed Khalil PA-C [address] [place] [address] PCP - General 05/31/21
[2024-12-26 13:39] LABS: Cholesterol 154 mg/dL (<200); HDL Cholesterol 47 mg/dL (>40); Triglycerides 60 mg/dL (<150)
== END 2024-12-26 11:11 | disposition home or self-care (01) ==
LOC: HO.HHCL 11:10
PROVIDERS: PCP General Practice; Visit Provider General Practice
DX: E66.811 Obesity, class 1 (principal)
CPT/HCPCS: 36415; 80061

== ENCOUNTER 2025-02-24 09:47 | Outpatient (REF) | payer OTHER, SELFPAY ==
--- NOTE | ~2025-02-24 | US_ITS ---
EXAMINATION: US DIAGNOSTIC ULTRASOUND BREAST, BILATERAL CLINICAL INFORMATION: Bilateral breast pain lateral areas over the summer pain stopped one month ago.. COMPARISON: Comparison is made with relevant prior imaging. TECHNIQUE: Ultrasound of the breast is performed with real-time jimenez scale imaging and color Doppler. FINDINGS: Targeted color Doppler ultrasound scanning in the area the patient's previous pain in the left breast 2-4 o'clock in right breast 8-10 o'clock area of patient's previous pain demonstrates normal fibronodular breast tissue. There is no sonographic abnormal finding. Results are discussed with the patient at time of visit. US/US Breast BI Limited Mamm Only IMPRESSION: No sonographic abnormal findings bilateral breasts areas of prior pain. Recommend clinical evaluation and follow-up. ASSESSMENT: BI-RADS 1: Negative RECOMMENDATION: Recommend clinical evaluation and followup Electronically signed by: Monse Anderson DO 02/24/2025 11:47 AM EST
--- OUTSIDE RECORDS SUMMARY | 2025-02-24 12:37 | XMS_ITS | Encounter Summary ---
Author Organization [employer] Address [address] [place] [address] Care Team Providers Care Dot Etcher Name Role Phone Aimee Metcalf MD Primary Care Provider [phone] Encounter Details Date Type Department Care Team ([facility] Contact Info) Description 02/24/2025 Orders Only [facility] [address] [place], [place] [phone] Aimee Metcalf MD [address] [place], [place] [phone] Social History Tobacco Use Types Packs/Day Years [...] on file documented as of this encounter Procedures Procedure Name Priority Date/Time Associated Diagnosis Comments BI US BREAST LIMITED BILATERAL Routine 02/24/2025 10:05 AM EST documented in this encounter Results * BI US Breast Limited Bilateral (02/24/2025 10:05 AM EST) Anatomical Region Laterality Modality Breast Bilateral Ultrasound 02/24/2025 10:0 5 AM EST Narrative 02/24/2025 11:50 AM EST [facility] [address] [place] [address] Ultrasound Report Signed Patient: Javier Alejo MR#: [id number] 622 : 1995 Acct:[id number] Age/Sex: 29 / F ADM Date: 02/24/25 Loc: HO.MAMMO Attending Dr: Aimee Metcalf MD Ordering Physician: Aimee Metcalf Date of Service: 02/24/25 Procedure(s): US Breast BI Limited Mamm Only Accession Number(s): [id number] cc: Aimee Metcalf Reason for Exam: BILAT BR PAIN EXAMINATION: US DIAGNOSTIC ULTRASOUND BREAST, BILATERAL CLINICAL INFORMATION: Bilateral breast pain lateral areas over the summer pain stopped one month ago.. COMPARISON: Comparison is made with relevant prior imaging. TECHNIQUE: Ultrasound of the breast is performed with real-time jimenez scale imaging and color Doppler. FINDINGS: Targeted color Doppler ultrasound scanning in the area the patient's previous pain in the left breast 2-4 o'clock in right breast 8-10 o'clock area of patient's previous pain demonstrates normal fibronodular breast tissue. There is no sonographic abnormal finding. Results are discussed with the patient at time of visit. US/US Breast BI Limited Mamm Only IMPRESSION: No sonographic abnormal findings bilateral breasts areas of prior pain. Recommend clinical evaluation and follow-up. ASSESSMENT: BI-RADS 1: Negative RECOMMENDATION: Recommend clinical evaluation and followup Electronically signed by: Monse Anderson DO 02/24/2025 11:47 AM EST Dictated By: Monse Anderson DO Signed By: <Electronically signed by Monse Anderson DO in OV> 02/24/25 1147 DD/ 1005 TD/TT: 02/24/25 1026 Compliance Consultant: Procedure Note Donotuseinterpreter, Image - 02/24/2025 [facility] [address] [place] [address] Ultrasound Report Signed Patient: Javier Alejo DMR#: [id number] 622 : 1995Acct:[id number] Age/Sex: Date: 02/24/25 Loc: HO.MAMMO Attending Dr: Aimee Metcalf MD Ordering Physician: Aimee Metcalf Date of Service: 02/24/25 Procedure(s): US Breast BI Limited Mamm Only Accession Number(s): [id number] cc: Aimee Metcalf Reason for Exam: BILAT BR PAIN EXAMINATION: US DIAGNOSTIC ULTRASOUND BREAST, BILATERAL CLINICAL INFORMATION: Bilateral breast pain lateral areas over the summer pain stopped one month ago.. COMPARISON: Comparison is made with relevant prior imaging. TECHNIQUE: Ultrasound of the breast is performed with real-time jimenez scale imaging and color Doppler. FINDINGS: Targeted color Doppler ultrasound scanning in the area the patient's previous pain in the left breast 2-4 o'clock in right breast 8-10 o'clock area of patient's previous pain demonstrates normal fibronodular breast tissue. There is no sonographic abnormal finding. Results are discussed with the patient at time of visit. US/US Breast BI Limited Mamm Only IMPRESSION: No sonographic abnormal findings bilateral breasts areas of prior pain. Recommend clinical evaluation and follow-up. ASSESSMENT: BI-RADS 1: Negative RECOMMENDATION: Recommend clinical evaluation and followup Electronically signed by: Monse Anderson DO 02/24/2025 11:47 AM EST Dictated By: Monse Anderson DO Signed By: <Electronically signed by Monse Anderson DO in OV> 02/24/25 1147 DD/ 1005 TD/TT: 02/24/25 1026 Compliance Consultant: us Aimee Metcalf MD IMG US PROCEDURES Final Result documented in this encounter Visit Diagnoses Not on filedocumented in this encounter Additional Health Concerns Assessment Noted Time PHQ-9 Depression Total Score: 3 12/27/19 25 10:42 AM EDT documented as of this encounter Care Teams Dot Etcher Relationship Specialty Start Date End Date Aimee Metcalf MD [address] [place] [phone] PCP - General Family Medicine 11/14/23 documented as of this encounter
--- OUTSIDE RECORDS SUMMARY | 2025-02-24 12:37 | XMS_ITS | Clinical Summary ---
Author Organization [employer] Address [address] [facility] 7t [place] [address] Care Team Providers Care Sales Representative Printing Paper Name Role Phone Aimee Metcalf MD Primary Care Provider [phone] Allergies Active Allergy Reactions Criticality Noted Date [...] Encounters Date Type Department Care Team Description 02/24/2025 Orders Only [facility] [address] [place] [address] Aimee Metcalf MD 12/26/2024 10:30 AM EDT Office Visit [address] [address] Aimee Metcalf MD Class 1 obesity (Primary Dx); Normal female breast exam; Pain of both breasts 12/26/2024 Travel 12/25/[address] [address] Aimee Metcalf MD chart prep 12/19/2024 Travel 12/18/2024 Patient Outreach [address] [address] Aimee Metcalf MD Pre-visit Planning (Pre-visit planning [...] Health Maintenance Due Date Last Done Comments COVID-19 Vaccine ( season) 2024 10/09/2020, 09/18/2020 Influenza Vaccine (#1) 2024 11/14/2023, 2013 SDOH Screening 11/13/2024 11/14/2023 Disability Screening 04/09/2025 04/09/2024 Family Planning (PISQ) 04/09/2025 04/09/2024 Alcohol/Substance Use Screening 12/26/2025 12/26/2024 Depression Screening 12/26/2025 12/26/2024, 12/27/19 Tobacco Screening 12/26/2025 12/26/2024 DTaP/Tdap/Td Vaccines (7 - Td or Tdap) 06/30/2026 06/30/2016, 07/13/2008, 05/14/1998, Additional history exists Pap Smear 04/09/2027 04/09/2024 Lipid Panel 12/26/2029 12/26/2024 Zoster Vaccines (1 of 2) 2046 RSV [...] LIMITED BILATERAL Routine 02/24/2025 10:05 AM EST LIPID PANEL, STANDARD Routine 12/26/2024 11:13 AM EDT Class 1 obesity PAP SMEAR Routine 04/09/2024 10:00 AM EST Routine cervical smear HEPATITIS C AB W/REFL TO HCV RNA, QN, PCR Routine 11/14/2023 2:37 PM EDT Routine screening for STI (sexually transmitted infection) HIV 1/2 ANTIGEN/ANTIBODY, FOURTH GENERATION W/RFL Routine 11/14/2023 2:37 PM EDT Routine screening for STI (sexually transmitted infection) from Last 3 Months or Most Recently Relevant to Health Maintenance Results * BI US Breast Limited Bilateral (02/24/2025 10:05 AM EST) Anatomical Region Laterality Modality Breast Bilateral Ultrasound 02/24/2025 10:0 5 AM EST Narrative 02/24/2025 11:50 AM EST [facility] [address] [place] [address] Ultrasound Report Signed Patient: Jvaier Alejo MR#: [id number] 622 : 1995 Acct:[id number] Age/Sex: 29 / F ADM Date: 02/24/25 Loc: HO.MAMMO Attending Dr: Aimee Metcalf MD Ordering Physician: Aimee Metcalf Date of Service: 02/24/25 Procedure(s): US Breast BI Limited Mamm Only Accession Number(s): [id number] cc: Aimee Metcalf Reason for Exam: BILAT [...] 02/24/25 1147 DD/ 1005 TD/TT: 02/24/25 1026 Paper Pattern Inspector: Procedure Note Donotuseinterpreter, Image - 02/24/2025 [facility] [address] [place] [address] Ultrasound Report Signed Patient: Javier Alejo [facility]#: [id number] 622 : 1995Acct:[id number] Age/Sex: 29 / FADM Date: 02/24/25 Loc: HO.MAMMO Attending Dr: Aimee Metcalf MD Ordering Physician: Aimee Metcalf Date of Service: 02/24/25 Procedure(s): US Breast BI Limited Mamm Only Accession Number(s): [id number] cc: Aimee Metcalf Reason for Exam: BILAT [...] 02/24/25 1147 DD/ 1005 TD/TT: 02/24/25 1026 Paper Pattern Inspector: Aimee Metcalf MD IMG US PROCEDURES Final Result * Lipid Panel, Standard (12/26/2024 11:13 AM EDT) Triglycerides 60 <150 mg/dL [facility] Comment:Desirable Triglyceri de: less than 150 mg/dLBorderline High Triglyceride 150-199 mg/dLHigh Triglyceride: 200-499 mg/dLVery High Triglyceride: greater than or equal to 5OO mg/dL Cholesterol 154 <200 mg/dL [facility] Comment:Desirable Cholestero l: less than 200 mg/dLBorderline High Cholesterol: 200-239 mg/dLHigh Cholesterol: greater than 239 mg/dL LDL Cholesterol Calculated 95 <100 mg/dL [facility] Comment:Desirable LDL: less than 100 mg/dLNear Optimal/Above Optimal LDL: 110- 129 mg/dLBorderline High LDL: 130-159 mg/dLHigh LDL: 160-189 mg/dLVery High LDL: greater than or equal to 190 mg/dL HDL Cholesterol 47 >40 mg/dL [facility] Comment:Desirable HDL: great er than 40 mg/dL Note: This HDL assay may give artificially low results in patients with liver disease. Blood Venous blood specimen / Unknown 12/26/2024 11:13 AM EDT 12/26/2024 1:06 PM EDT Aimee Metcalf MD LAB BLOOD ORDERABLES Final Res ult [facility] [address] [place] [address] [phone] * Pap Smear (04/09/2024 10:00 AM EST) Swab Cervix uteri structure / Unknown 04/09/2024 10:00 AM EST 04/10/2024 6:10 AM EST Narrative [facility] - 04/17/2024 9:41 PM EST ----- ------- Name: Javier Alejo Age/Sex: 28/F : 1995 Unit#: [id number] Attend Dr: Maura Waller Re04/09/24 Status: [facility]: ----- ------- SPEC : [id number] RECD: 04/10/24 STATUS: LAKISHA REJunior NUM: [id number] JC: 04/09/24-[address] [facility] [address]: Maura Waller ENTERED: 04/10/24 SP TYPE: Pap Smr OT DR: ORDERED: Pap Smear, PAP path review Interpretation [...] ThinPrep-Cervical ----- ------- Signed (signature on file) Dsetiney Elizalde MD 04/17/24 214 ----- ------- END OF REPORT Maura MUÑIZP LAB CYTOLOGY ORDERABLES Final Result Performing Organization Address [facility] de Phone Number [facility] [address] [place] [address] [phone] * Hepatitis C Antibody with Reflex to HCV, RNA, Quantitative, Real-Time PCR (11/14/2023 2:37 PM EDT) Hepatitis C Antibody Nonreactive Nonreactive [facility] Comment:Antibodies to HCV no t detected; does not exclude early acuteHCV infection. Blood Venous blood specimen / Unknown 11/14/2023 2:37 PM EDT 11/14/2023 4:08 PM EDT us Aimee Metcalf MD LAB BLOOD ORDERABLES Final Res ult Performing Organization Address [facility] Co de Phone Number [facility] [address] [place] [phone] * HIV-1/2 Antigen and Antibodies, Fourth Generation, with Reflexes (11/14/2023 2:37 PM EDT) HIV AB/AG Nonreactive Nonreactive [facility] Comment:HIV-1 p24 Ag and/or HIV-1/HIV-2 Ab not detected.A test result that is nonreactive does not exclude thepossibility of exposure to or infection with HIV-1 and/orHIV-2. Nonreactive results in this assay for individualswith prior exposure to HIV-1 and/or HIV-2 may be due toantigen and antibody levels that are below the limit ofdetection of this assay.[facility] HIV Ag/Ab Combo assay result andsupplemental assay results should be interpreted inconjunction with the patient's clinical presentation,history and other laboratory results. If the results areinconsistent with clinical evidence, additional testing issuggested to confirm the result. Blood Venous blood specimen / Unknown 11/14/2023 2:37 PM EDT 11/14/2023 4:08 PM EDT us Aimee Metcalf MD LAB BLOOD ORDERABLES Final Res ult [facility] [address] [place] [address] [phone] from Last 3 Months or Most Recently Relevant to Health Maintenance Insurance [facility] Care Teams Sales Representative Printing Paper Relationship Specialty Start Date End Date Aimee Metcalf MD [address] [facility] [place] [address] PCP - General Family Medicine 11/14/23
== END 2025-02-24 09:48 ==
LOC: HO.MAMMO 09:47
PROVIDERS: PCP General Practice; Visit Provider General Practice
DX: N64.4 Mastodynia (principal)
CPT/HCPCS: 76642

== ENCOUNTER → 2025-02-24 10:00 | Outpatient (BNV) | payer OTHER, SELFPAY | PROVIDERS: PCP General Practice; Visit Provider Internal Medicine | DX: N64.4 Mastodynia (principal) | CPT/HCPCS: 76642 ==